=== PATIENT | female | born 1960 | race Caucasian/White ===

== ENCOUNTER 2017-09-13 09:51 | Inpatient (IN) ==
[2017-09-13 10:53] LABS: BASOPHILS % (AUTO) 0.3 % (0.2-1.0); EOSINOPHILS % (AUTO) 0.1 % (0.9-2.9); HEMATOCRIT 33.8 % (36.0-47.0); HEMOGLOBIN 11.6 g/dL (12.0-16.0); LYMPHOCYTES # (AUTO) 1.2 X10^3/uL (1.3-2.9); LYMPHOCYTES % (AUTO) 12.1 % (21.0-51.0); MEAN CORPUSCULAR HEMOGLOBIN 30.8 pg (27.0-34.0); MEAN CORPUSCULAR HGB CONC 34.5 g/dL (33.0-35.0); MEAN CORPUSCULAR VOLUME 89.4 fL (80.0-100.0); MEAN PLATELET VOLUME 8.4 fL (7.4-11.0); MONOCYTES # (AUTO) 0.6 x10^3/uL (0.3-0.8); MONOCYTES % (AUTO) 6.3 % (0.0-13.0); NEUTROPHILS # (AUTO) 7.9 x10^3/uL (2.2-4.8); NEUTROPHILS % (AUTO) 81.2 % (42.0-75.0); PLATELET COUNT 206 X10^3/uL (150.0-450.0); RED BLOOD COUNT 3.78 X10^6/uL (3.5-5.4); RED CELL DISTRIBUTION WIDTH 13.8 % (11.6-16.5); WHITE BLOOD COUNT 9.7 X10^3/uL (3.6-10.0)
[2017-09-13 11:20] LABS: ALANINE AMINOTRANSFERASE 47 Units/L (12-78); ALBUMIN 2.8 g/dL (3.4-5.0); ALKALINE PHOSPHATASE 116 Units/L (46-116); AMYLASE 31 Units/L (25-115); ASPARTATE AMINO TRANSFERASE 42 Units/L (15-37); BLOOD UREA NITROGEN 14 mg/dL (7-18); CALCIUM 9.1 mg/dL (8.5-10.1); CARBON DIOXIDE 25.4 mmol/L (21-32); CHLORIDE 102 mmol/L (98-107); COR CA(FOR HYPOALB) 10.1 mg/dL (8.5-10.1); COR NA(FOR HYPERGLY) 141 mmol/L (136-145); LIPASE 186 Units/L (73-393); SODIUM 137 mmol/L (136-145); TOTAL PROTEIN 7.5 g/dL (6.4-8.2); eGFR NON BLACK RACES > 60 (>60)
[2017-09-13] MEDS: LEVAQUIN PREMIX IV 500 MG 500 MG/100 ML BAG IV SCH (11:31)
[2017-09-13 11:56] LABS: BILIRUBIN,URINE NEGATIVE (NEGATIVE); BLOOD/HEMOGLOBIN,URINE 2+ (NEGATIVE); GLUCOSE, URINE 4+ (NEGATIVE); KETONES,URINE NEGATIVE (NEGATIVE); LEUKOCYTE ESTERASE ,URINE 1+ (NEGATIVE); NITRITES,URINE NEGATIVE (NEGATIVE); PROTEIN,URINE 2+ (NEGATIVE); UROBILINOGEN,URINE NORMAL (NORMAL)
[2017-09-13 12:13] VITALS: BMI 23.2
[2017-09-13 12:18] LABS: APPEARANCE,URINE CLEAR (CLEAR); COLOR,URINE YELLOW (YELLOW)
[2017-09-13 12:19] LABS: BACTERIA,URINE TRACE /HPF (NEGATIVE); RBC,URINE 0-2 /HPF (NONE SEEN); SQUAMOUS EPITHELIAL CELL,UR FEW /HPF (NEGATIVE)
[2017-09-13] MEDS: DEMEROL INJ IVP PRN ×2 (15:58→21:50)
[2017-09-13] MEDS: ZOFRAN INJ 4 MG VIAL IVP PRN ×2 (15:58→21:50)
[2017-09-13] MEDS: SNACK - Diabetic Appropriate PO SCH (21:13)
[2017-09-13] MEDS: NS 1000 ML 1,000 ML IV SCH (21:14)
[2017-09-14] MEDS: ZOFRAN INJ 4 MG VIAL IVP PRN (05:13)
[2017-09-14] MEDS: DEMEROL INJ IVP PRN ×2 (05:13→22:12)
[2017-09-14 06:24] LABS: BASOPHILS % (AUTO) 0.1 % (0.2-1.0); EOSINOPHILS % (AUTO) 0.5 % (0.9-2.9); HEMATOCRIT 30.3 % (36.0-47.0); HEMOGLOBIN 10.5 g/dL (12.0-16.0); LYMPHOCYTES # (AUTO) 1.2 X10^3/uL (1.3-2.9); LYMPHOCYTES % (AUTO) 15.9 % (21.0-51.0); MEAN CORPUSCULAR HEMOGLOBIN 30.7 pg (27.0-34.0); MEAN CORPUSCULAR HGB CONC 34.7 g/dL (33.0-35.0); MEAN CORPUSCULAR VOLUME 88.2 fL (80.0-100.0); MEAN PLATELET VOLUME 8.4 fL (7.4-11.0); MONOCYTES # (AUTO) 0.6 x10^3/uL (0.3-0.8); MONOCYTES % (AUTO) 8.5 % (0.0-13.0); NEUTROPHILS # (AUTO) 5.7 x10^3/uL (2.2-4.8); PLATELET COUNT 191 X10^3/uL (150.0-450.0); RED BLOOD COUNT 3.43 X10^6/uL (3.5-5.4); RED CELL DISTRIBUTION WIDTH 13.4 % (11.6-16.5); WHITE BLOOD COUNT 7.6 X10^3/uL (3.6-10.0)
[2017-09-14 06:36] LABS: ALANINE AMINOTRANSFERASE 45 Units/L (12-78); ALBUMIN 2.3 g/dL (3.4-5.0); ALKALINE PHOSPHATASE 100 Units/L (46-116); ASPARTATE AMINO TRANSFERASE 33 Units/L (15-37); BLOOD UREA NITROGEN 13 mg/dL (7-18); CALCIUM 8.8 mg/dL (8.5-10.1); CARBON DIOXIDE 23.7 mmol/L (21-32); CHLORIDE 104 mmol/L (98-107); COR CA(FOR HYPOALB) 10.2 mg/dL (8.5-10.1); COR NA(FOR HYPERGLY) 140 mmol/L (136-145); CREATININE 0.85 mg/dL (0.55-1.02); SODIUM 138 mmol/L (136-145); TOTAL PROTEIN 6.7 g/dL (6.4-8.2); eGFR NON BLACK RACES > 60 (>60)
[2017-09-14] MEDS: LEVAQUIN PREMIX IV 500 MG 500 MG/100 ML BAG IV SCH (08:52)
[2017-09-14] MEDS ORDERED: OLMESARTAN PO SCH (09:00)
[2017-09-14] MEDS ORDERED: BENICAR TAB 40 MG PO SCH (10:00)
[2017-09-14] MEDS: NS 1000 ML 1,000 ML IV SCH (11:45)
[2017-09-14] MEDS ORDERED: NS 100 ML IV 100 ML IV ONE (13:40)
[2017-09-14] MEDS: AMARYL TAB 4 MG PO SCH ×2 (14:15→21:10)
--- NOTE | 2017-09-14 16:37 | CT ---
CT OF THE ABDOMEN AND PELVIS WITH CONTRAST HISTORY: Right lower quadrant pain. History of diverticulitis. Comparison: None Technique: Multiple axial images of the abdomen and pelvis were obtained from the lung bases to the pubic symphy sis follow the administration of IV contrast as well as oral contrast. Dose reduction techniques inc luding Automated Exposure Control (AEC) and adjustment of mA and kV were utlized. Findings: The heart is normal in size. There is no pericardial effusion. Lung bases are clear without focal con solidation, pleural effusion or pneumothorax. Liver and spleen are normal in size, enhancement characteristics and contour. No focal lesions. The p ortal vein is patent. No ductal dilitation. Gallbladder is present. No calcified gallstones or gallbl adder wall thickening. The pancreas is unremarkable. Adrenal glands are normal. No hydronephrosis or nephrolithiasis. There appears to be a striated nephrogram involving the right kidney with mildly asy mmetric perinephric stranding on the right. No bowel obstruction or inflammation. Appendix not well seen however no right lower quadrant inflamma tion is identified. Diverticulosis without focal inflammation. No abnormal appearing mesenteric or re troperitoneal lymph nodes. No free fluid or fluid collections. The bladder is normal in appearance. Uterus not well seen. No free fluid or abnormal pelvic lymph nod es. No aggressive osseous lesions. IMPRESSION: 1. Right-sided striated nephrogram as well as asymmetric right perinephric fat stranding. Findings a re suggestive of pyelonephritis on the right. Correlate with symptoms and UA. Reported By:
[2017-09-14] MEDS ORDERED: HumuLIN R ONE (21:59)
[2017-09-14] MEDS: SNACK - Diabetic Appropriate PO SCH (22:10)
[2017-09-14] MEDS: BENICAR TAB 40 MG PO SCH (22:11)
[2017-09-14] MEDS: HumuLIN R SUBCUT PRN (22:11)
[2017-09-14] MEDS: ZOCOR TAB 20 MG PO SCH (22:11)
[2017-09-15 06:06] LABS: BASOPHILS % (AUTO) 0.4 % (0.2-1.0); EOSINOPHILS # (AUTO) 0.1 x10^3/uL (0.0-0.2); EOSINOPHILS % (AUTO) 1.2 % (0.9-2.9); HEMATOCRIT 32.9 % (36.0-47.0); HEMOGLOBIN 11.3 g/dL (12.0-16.0); LYMPHOCYTES # (AUTO) 1.1 X10^3/uL (1.3-2.9); LYMPHOCYTES % (AUTO) 15.3 % (21.0-51.0); MEAN CORPUSCULAR HEMOGLOBIN 30.4 pg (27.0-34.0); MEAN CORPUSCULAR HGB CONC 34.4 g/dL (33.0-35.0); MEAN CORPUSCULAR VOLUME 88.5 fL (80.0-100.0); MONOCYTES # (AUTO) 0.6 x10^3/uL (0.3-0.8); MONOCYTES % (AUTO) 8.6 % (0.0-13.0); NEUTROPHILS # (AUTO) 5.2 x10^3/uL (2.2-4.8); NEUTROPHILS % (AUTO) 74.5 % (42.0-75.0); PLATELET COUNT 239 X10^3/uL (150.0-450.0); RED BLOOD COUNT 3.72 X10^6/uL (3.5-5.4); RED CELL DISTRIBUTION WIDTH 13.3 % (11.6-16.5); WHITE BLOOD COUNT 6.9 X10^3/uL (3.6-10.0)
[2017-09-15 06:23] LABS: ALANINE AMINOTRANSFERASE 95 Units/L (12-78); ALBUMIN 2.4 g/dL (3.4-5.0); ALKALINE PHOSPHATASE 116 Units/L (46-116); ASPARTATE AMINO TRANSFERASE 88 Units/L (15-37); BLOOD UREA NITROGEN 12 mg/dL (7-18); CALCIUM 8.8 mg/dL (8.5-10.1); CARBON DIOXIDE 25.8 mmol/L (21-32); CHLORIDE 103 mmol/L (98-107); COR CA(FOR HYPOALB) 10.1 mg/dL (8.5-10.1); COR NA(FOR HYPERGLY) 142 mmol/L (136-145); SODIUM 140 mmol/L (136-145); TOTAL PROTEIN 7.1 g/dL (6.4-8.2); eGFR NON BLACK RACES > 60 (>60)
[2017-09-15] MEDS ORDERED: KLONOPIN TAB 0.5 MG PO ONE (09:19)
[2017-09-15] MEDS: AMARYL TAB 4 MG PO SCH ×2 (10:02→21:15)
[2017-09-15] MEDS: LEVAQUIN PREMIX IV 500 MG 500 MG/100 ML BAG IV SCH (10:03)
[2017-09-15] MEDS ORDERED: HumuLIN R ONE (12:05)
[2017-09-15] MEDS: HumuLIN R SUBCUT PRN ×3 (12:08→21:20)
--- NOTE | 2017-09-15 17:56 | DR.UPDATE ---
H&P Update History and Physical Update: WAS SEEN IN THE OFFICE TODAY. A H&P WAS COMPLETED PRIOR TO ADMISSION. PATIENT HAS BEEN SEEN AND EXAMINED WITH NO CHANGES NOTED TO H&P. Changes noted: NO Yes with the following:
--- NOTE | 2017-09-15 18:06 | PCM.PROG ---
Progress Note - Progress Note for Day of Date of Exam: 09/14/17 - Subjective Subjective: WAS ADMITTED FOR COMPLAINTS OF ABDOMINAL PAIN. TODAY, SHE IS ALERT AND ORIENTED, LYING IN BED ON MORNING ROUNDS. SHE CONTINUES WITH COMPLAINTS OF RLQ ABDOMINAL PAIN AND NAUSEA. SHE ALSO REPORTS LOWER BACK PAIN. RLQ TENDERNESS NOTED TO PALPATION. NORMAL BOWEL SOUNDS NOTED IN ALL QUADRANTS. HER VITALS TODAY ARE 98.8-91-18-96%-123/62. TEMPERATURE NOTED TO BE 100.3 LAST NIGHT. LABS WERE OBTAINED. ABNORMAL LAB VALUES INCLUDE THE FOLLOWING: RBC 3.43, HGB 10.5, HCT 30.3, GLUCOSE 173, ALBUMIN 2.3. URINALYSIS REVEALED WBC 3-5, RBC 0 -2, LEUKOCYTES 1+, BACTERIA TRACE. A URINE CULTURE IS PENDING. PATIENT REPORTS RECENTLY BEING TREATED FOR A URINARY TRACT INFECTION. TODAY, WE WILL OBTAIN AN ABDOMEN/PELVIS CT WITH CONTRAST. OTHERWISE, WE WILL CONTINUE WITH CURRENT PLAN OF CARE. WE PLAN TO FOLLOW UP WITH AM LABS AND CONTINUE TO MONITOR PATIENT. - Past Medical Family Social History Past Med/Fam/Surg Hx: No changes since H&P Allergies: Allergies codeine Allergy (Verified 09/13/17 10:48) - Review of Systems ROS: No change since H&P - Vital Signs and I&O's Vital Signs: Temperature 97.7 F Pulse Rate [Right Brachial] 93 Respiratory Rate 18 Blood Pressure [Right Arm] 157/70 O2 Sat by Pulse Oximetry 96 Intake and Output: Intake & Output 09/13/17 09/14/17 09/15/17 09/16/17 11:59 11:59 11:59 11:59 Intake Total 1016 / 1016 1857 / 1857 2803 / 2803 Output Total 700 / 700 Balance 316 / 316 1857 / 1857 2803 / 2803 - Physical Exam Oriented: Normal Eyes: Normal Ear: Normal Nose: Normal Throat: Normal Respiratory: Normal Cardiovascular: Normal : Normal Auscultation: Bowel Sounds: Normal Palpation: Normal Tenderness: RLQ, Moderate. negative: Rebound, Guarding, Rigidity Musculoskeletal: Back:Lumbar, Tender Psychiatric: Normal Mood Description: Calm Affect: Normal Speech Pattern: Clear, Appropriate - Laboratory and Diagnostics Result Diagrams: 09/15/17 05:36 09/15/17 05:36 Labs: 09/13/17 12:40 Blood Blood Culture - Preliminary 09/13/17 12:35 Blood Blood Culture - Preliminary 09/14/17 09:46 Urine,Clean Catch Urine Culture - Preliminary 09/13/17 11:29 Urine,Clean Catch Urine Culture - Final Laboratory WBC 6.9 X10^3/uL (3.6-10.0) 09/15/17 05:36 RBC 3.72 X10^6/uL (3.5-5.4) 09/15/17 05:36 Hgb 11.3 g/dL (12.0-16.0) L 09/15/17 05:36 Hct 32.9 % (36.0-47.0) L 09/15/17 05:36 MCV 88.5 fL (80.0-100.0) 09/15/17 05:36 MCH 30.4 pg (27.0-34.0) 09/15/17 05:36 MCHC 34.4 g/dL (33.0-35.0) 09/15/17 05:36 RDW 13.3 % (11.6-16.5) 09/15/17 05:36 Plt Count 239 X10^3/uL (150.0-450.0) 09/15/17 05:36 MPV 8.0 fL (7.4-11.0) 09/15/17 05:36 Neut % (Auto) 74.5 % (42.0-75.0) 09/15/17 05:36 Lymph % (Auto) 15.3 % (21.0-51.0) L 09/15/17 05:36 [place] % (Auto) 8.6 % (0.0-13.0) 09/15/17 05:36 Eos % (Auto) 1.2 % (0.9-2.9) 09/15/17 05:36 Baso % (Auto) 0.4 % (0.2-1.0) 09/15/17 05:36 Neut # (Auto) 5.2 x10^3/uL (2.2-4.8) H 09/15/17 05:36 Lymph # (Auto) 1.1 X10^3/uL (1.3-2.9) L 09/15/17 05:36 [place] # (Auto) 0.6 x10^3/uL (0.3-0.8) 09/15/17 05:36 Eos # (Auto) 0.1 x10^3/uL (0.0-0.2) 09/15/17 05:36 Baso # (Auto) 0.0 X10^3/uL (0.0-0.1) 09/15/17 05:36 Absolute Nucleated RBC 0.0 /100WBC 09/15/17 05:36 Sodium 140 mmol/L (136-145) 09/15/17 05:36 Corrected Sodium 142 mmol/L (136-145) 09/15/17 05:36 Potassium 3.7 mmol/L (3.5-5.1) 09/15/17 05:36 Chloride 103 mmol/L (98-107) 09/15/17 05:36 Carbon Dioxide 25.8 mmol/L (21-32) 09/15/17 05:36 BUN 12 mg/dL (7-18) 09/15/17 05:36 Creatinine 0.80 mg/dL (0.55-1.02) 09/15/17 05:36 Est GFR (MDRD) Af Amer > 60 (>60) 09/15/17 05:36 Est GFR (MDRD) Non-Af > 60 (>60) 09/15/17 05:36 Glucose 184 mg/dL (65-99) H 09/15/17 05:36 POC Glucose (mg/dL) 226 mg/dL (65-99) H 09/15/17 15:58 Calcium 8.8 mg/dL (8.5-10.1) 09/15/17 05:36 Corrected Calcium 10.1 mg/dL (8.5-10.1) 09/15/17 05:36 Total Bilirubin 0.40 mg/dL (0.2-1.0) 09/15/17 05:36 AST 88 Units/L (15-37) H 09/15/17 05:36 ALT 95 Units/L (12-78) H 09/15/17 05:36 Alkaline Phosphatase 116 Units/L (46-116) 09/15/17 05:36 Total Protein 7.1 g/dL (6.4-8.2) 09/15/17 05:36 Albumin 2.4 g/dL (3.4-5.0) L 09/15/17 05:36 Globulin 4.7 g/dL (2.5-4.5) H 09/15/17 05:36 Albumin/Globulin Ratio 0.5 Ratio (1.1-2.1) L 09/15/17 05:36 Amylase 31 Units/L (25-115) 09/13/17 10:44 Lipase 186 Units/L (73-393) 09/13/17 10:44 Specimen Type Clean catch urine 09/13/17 11:29 Urine Color Yellow (YELLOW) 09/13/17 11:29 Urine Appearance Clear (CLEAR) 09/13/17 11:29 Urine pH 7.0 (5.0 - 8.0) 09/13/17 11:29 Ur Specific [place] 1.005 (1.000-1.030) 09/13/17 11:29 Urine Protein 2+ (NEGATIVE) 09/13/17 11:29 Urine Glucose (UA) 4+ (NEGATIVE) 09/13/17 11:29 Urine Ketones Negative (NEGATIVE) 09/13/17 11:29 Urine Occult Blood 2+ (NEGATIVE) 09/13/17 11:29 Urine Nitrite Negative (NEGATIVE) 09/13/17 11:29 Urine Bilirubin Negative (NEGATIVE) 09/13/17 11:29 Urine Urobilinogen Normal (NORMAL) 09/13/17 11:29 Ur Leukocyte Esterase 1+ (NEGATIVE) 09/13/17 11:29 Urine RBC 0-2 /HPF (NONE SEEN) 09/13/17 11:29 Urine WBC 3-5 /HPF (NONE SEEN) 09/13/17 11:29 Ur Squamous Epith Cells Few /HPF (NEGATIVE) 09/13/17 11:29 Urine Bacteria Trace /HPF (NEGATIVE) 09/13/17 11:29 Ur Culture Indicated? Yes/culture set up 09/13/17 11:29 - Plan (1) Abdominal pain Status: Acute Qualifiers: Abdominal location: right lower quadrant Qualified Code(s): R10.31 - Right lower quadrant pain Plan: OBTAIN ABDOMEN/PELVIS CT WITH CONTRAST, CONTINUE LEVAQUIN, CONTINUE DEMEROL, CONTINUE TO MONITOR (2) Nausea & vomiting Status: Acute Qualifiers: Vomiting type: unspecified Vomiting Intractability: non-intractable Qualified Code(s): R11.2 - Nausea with vomiting, unspecified Plan: CONTINUE ZOFRAN PRN, CONTINUE TO MONITOR
[2017-09-15] MEDS: NS 1000 ML 1,000 ML IV SCH (20:39)
[2017-09-15] MEDS: SNACK - Diabetic Appropriate PO SCH (20:39)
[2017-09-15] MEDS: ZOCOR TAB 20 MG PO SCH (21:15)
[2017-09-15] MEDS: BENICAR TAB 40 MG PO SCH (21:15)
[2017-09-15] MEDS: KLONOPIN TAB 0.5 MG PO SCH (21:15)
[2017-09-16] MEDS ORDERED: TYLENOL 325 MG TAB PO PRN (04:14)
[2017-09-16 05:22] LABS: BASOPHILS % (AUTO) 0.4 % (0.2-1.0); EOSINOPHILS # (AUTO) 0.1 x10^3/uL (0.0-0.2); EOSINOPHILS % (AUTO) 1.6 % (0.9-2.9); HEMATOCRIT 33.2 % (36.0-47.0); HEMOGLOBIN 11.4 g/dL (12.0-16.0); LYMPHOCYTES # (AUTO) 1.5 X10^3/uL (1.3-2.9); LYMPHOCYTES % (AUTO) 19.8 % (21.0-51.0); MEAN CORPUSCULAR HEMOGLOBIN 30.2 pg (27.0-34.0); MEAN CORPUSCULAR HGB CONC 34.4 g/dL (33.0-35.0); MEAN PLATELET VOLUME 8.2 fL (7.4-11.0); MONOCYTES # (AUTO) 0.7 x10^3/uL (0.3-0.8); MONOCYTES % (AUTO) 9.3 % (0.0-13.0); NEUTROPHILS # (AUTO) 5.4 x10^3/uL (2.2-4.8); NEUTROPHILS % (AUTO) 68.9 % (42.0-75.0); PLATELET COUNT 281 X10^3/uL (150.0-450.0); RED BLOOD COUNT 3.77 X10^6/uL (3.5-5.4); RED CELL DISTRIBUTION WIDTH 13.4 % (11.6-16.5); WHITE BLOOD COUNT 7.8 X10^3/uL (3.6-10.0)
[2017-09-16 05:40] LABS: ALANINE AMINOTRANSFERASE 84 Units/L (12-78); ALBUMIN 2.4 g/dL (3.4-5.0); ALKALINE PHOSPHATASE 110 Units/L (46-116); ASPARTATE AMINO TRANSFERASE 41 Units/L (15-37); BLOOD UREA NITROGEN 15 mg/dL (7-18); CALCIUM 8.8 mg/dL (8.5-10.1); CARBON DIOXIDE 26.3 mmol/L (21-32); CHLORIDE 106 mmol/L (98-107); COR CA(FOR HYPOALB) 10.1 mg/dL (8.5-10.1); COR NA(FOR HYPERGLY) 143 mmol/L (136-145); CREATININE 0.84 mg/dL (0.55-1.02); SODIUM 141 mmol/L (136-145); eGFR NON BLACK RACES > 60 (>60)
[2017-09-16] MEDS ORDERED: BENICAR TAB 40 MG PO SCH (09:00)
[2017-09-16] MEDS: AMARYL TAB 4 MG PO SCH (09:39)
[2017-09-16] MEDS: KLONOPIN TAB 0.5 MG PO SCH (09:39)
[2017-09-16] MEDS: LEVAQUIN PREMIX IV 500 MG 500 MG/100 ML BAG IV SCH (09:40)
--- NOTE | 2017-09-16 10:11 | CT ---
HISTORY: Abdominal pain with fever and chills Study: CT abdomen and pelvis without contrast Comparison: September 14, 2017 Technique: Multiple axial images of the abdomen and pelvis were obtained from the lung bases to the pubic symphy sis without the administration of IV contrast. Dose reduction techniques including automated exposur e control (AEC) and adjustment of mA and kV were utilized. Findings: Atelectasis is noted within the visualized lungs. The liver, pancreas, adrenals, and left kidney are grossly unremarkable in appearance given the limitations of this noncontrast exam. Mild right-sided p erinephric stranding is again demonstrated similar to prior exam. Previous exam with IV contrast demo nstrated a suspected striated right nephrogram which may be seen with pyelonephritis. Recommend clini jorgito correlation and continued follow-up as indicated for further evaluation. Otherwise evaluation of the kidneys on this exam is limited without IV contrast. Correlation with ultrasound may be helpful. No CT evidence of significant hydronephrosis is identified. An approximate 1.0 cm calcific density ne ar the splenic hilum may reflect a splenic artery aneurysm and has not significantly changed. The haily endix is not definitely visualized however no significant inflammatory changes are appreciated within the right lower quadrant. Scattered diverticula are seen within the descending and sigmoid colon. A small umbilical hernia containing fat is noted. The urinary bladder is grossly unremarkable. IMPRESSION: Mild right-sided perinephric stranding similar to prior exam as discussed above. Recommend clinical c orrelation and continued follow-up is indicated further evaluation. Diverticulosis. Other findings as noted above. Reported By:
[2017-09-16] MEDS: NS 1000 ML 1,000 ML IV SCH (12:01)
[2017-09-16 13:09] VITALS: BP 170/72
--- NOTE | 2017-10-10 13:14 | DR.CARTERD ---
- Discharge Summary for: Discharge Summary for Date of:: 09/16/17 - Admission Date Date of Admission: 09/13/17 - Admission Diagnoses Admission Diagnosis: (1) Abdominal pain (2) Fever (3) Nausea & vomiting (4) UTI - Discharge Date Discharge Date: 09/16/17 - Discharge Diagnoses Discharge Diagnosis: (1) Abdominal pain (2) Fever (3) Nausea & vomiting (4) UTI - Hospital Course Hospital Course: Day one, Ms. Son presented to the hospital as a direct admission after being seen in the office with reports of abdominal pain. Patient was seen in our office the week before and was diagnosed with UTI and started on Bactrim. Patient returned to office with reports of worsening in fever and pain. Patient rated pain to abdomen as a 7/10. Patient was seen in our office one day prior as well, and was given IV fluids, and reported she felt no better this day. Patient admitted to the hospital for further evaluation and treatment. Medical History: Tinnitus, Hypertension, Gerd, Hiatal Hernia, Diverticulosis, Constipation, UTIs, Muscle Weakness, Cervical CA. Medications : Humulin R sliding scale PRN, Zofran 4mg IV Q4hr PRN, Levaquin 500mg IV daily, OTBS ACHS, NS @20ml/hr, Demerol 25mg IV Q6hr PRN. Abnormal Labs: Hgb 11.6, Hct 33.8, Glucose 263, AST 42, Albumin 2.8, Globulin 4.7, A/G Ratio 0.6. Urinalysis : Protein 2+, Glucose 4+, Occult Blood 2+, Leuk Est 1+, RBC 0-2, WBC 3-5, Bacteria Trace, Culture obtained. Blood Cultures x2 obtained. Day two, Patient was alert and oriented. She continued with complaints of RLQ abdominal pain and nausea. She also reported lower back pain. RLQ tenderness noted to palpation. Normal bowel sounds throughout. Vitals were: 98.8-91-18-96%- 123/62. Temperature noted to be 100.3 through the night. Abnormal labs were: Rbc 3.43, Hgb 10.5, Hct 30.3, Glucose 173, Albumin 2.3. We continued treatment and monitored. Day three, Patient noted with continued reports of abdominal pain with associated nausea. Pain location remained in right lower quadrant and lower back. Patient noted with tenderness on palpation of right lower quadrant. Abdomen and pelvis CT obtained revealed right-sided striated nephrogram as well as asymmetric right perinephric fat stranding; suggestive of pyelonephritis. Patient remained on IV antibiotic of Levaquin. Patient noted to have received Zofran 4mg IV x1 and Demerol 25mg IV x2 during the prior 24 hours with continued reports of pain. Abnormal Labs: Hgb 11.3, Hct 32.9, Lymph% 15.3, Neut # 5.2, Lymph# 1.1, Glucose 184, AST 88, ALT 95, Albumin 2.4, Globulin 4.7, A/G Ratio 0.5. Abdomen/Pelvis CT: Right-sided striated nephrogram as well as asymmetric right perinephric fat stranding. Findings are suggestive of pyelonephritis on the right. Correlate with symptoms and UA. We continued treatment. Day four, Patient reported that she was feeling better. She denied abdominal pain. Patient denied nausea or vomiting. Upon palpation, patient denied abdominal pain. Final blood and urine cultures negative for growth. Vital signs stable. Labs wnl. We planned for discharge. Instructions for medications and follow up were discussed with patient and family, both voiced understanding. Patient discharged home in stable condition with family. - Discharge Medications Discharge Medications: Home Medication List glimepiride 1 tab PO BID 09/13/17 [History] metformin 1 tab PO BID 09/13/17 [History] olmesartan 1 tab PO DAILY 09/13/17 [History] simvastatin 1 tab PO HS 09/13/17 [History] levofloxacin [Levaquin] 500 mg PO DAILY #14 tab 09/16/17 [Rx] ondansetron HCl [Zofran] 4 mg PO Q8H PRN #20 tab 09/16/17 [Rx] Prescriptions: levofloxacin [Levaquin] Wai Shannon ondansetron HCl [Zofran] Wai Shannon - Discharge Disposition Discharge Disposition: Patient is to follow up in our office in one week.
--- NOTE | 2017-10-21 10:36 | PCM.PROG ---
Progress Note - Progress Note for Day of Date of Exam: 09/15/17 - Subjective Subjective: WAS ADMITTED FOR COMPLAINTS OF ABDOMINAL PAIN. TODAY, SHE IS ALERT AND ORIENTED, LYING IN BED ON MORNING ROUNDS. SHE CONTINUES WITH COMPLAINTS OF RLQ ABDOMINAL PAIN AND NAUSEA. SHE ALSO CONTINUES WITH COMPLAINTS OF LOWER BACK PAIN, ALTHOUGH SLIGHTLY IMPROVED SINCE YESTERDAY. RLQ TENDERNESS NOTED TO PALPATION. NORMAL BOWEL SOUNDS NOTED IN ALL QUADRANTS. HER VITALS TODAY ARE 98.2-101-18-97%-133/63. SHE WAS AFEBRILE THROUGHOUT THE NIGHT. LABS WERE OBTAINED. ABNORMAL LAB VALUES INCLUDE THE FOLLOWING: HGB 11.3, HCT 32.9, GLUCOSE 184, AST 88, ALT 95, ALBUMIN 2.4. URINE CUTLURE AND BLOOD CULTURES ARE PENDING. AN ABDOMEN/PELVIS CT WAS OBTAINED YESTERDAY AND REVEALED: Right-sided striated nephrogram as well as asymmetric right perinephric fat stranding. Findings are suggestive of pyelonephritis on the right. TODAY, WE WILL CONTINUE WITH IV ANTIBIOTICS AND CURRENT PLAN OF CARE. WE PLAN TO FOLLOW UP WITH AM LABS AND CONTINUE TO MONITOR PATIENT. - Past Medical Family Social History Past Med/Fam/Surg Hx: No changes since H&P Allergies: Allergies codeine Allergy (Verified 09/13/17 10:48) - Review of Systems ROS: No change since H&P - Vital Signs and I&O's Vital Signs: Temperature 97.6 F Pulse Rate [Right Brachial] 76 Respiratory Rate 18 Blood Pressure [Right Arm] 170/72 O2 Sat by Pulse Oximetry 98 - Physical Exam Oriented: Normal Eyes: Normal Ear: Normal Nose: Normal Throat: Normal Respiratory: Normal Cardiovascular: Normal : Normal Auscultation: Bowel Sounds: Normal Palpation: Normal Tenderness: RLQ, Moderate. negative: Rebound, Guarding, Rigidity Musculoskeletal: Back:Lumbar, Tender Psychiatric: Normal Mood Description: Calm Affect: Normal Speech Pattern: Clear, Appropriate - Laboratory and Diagnostics Result Diagrams: 09/16/17 04:10 09/16/17 04:10 Labs: 09/13/17 12:40 Blood Blood Culture - Final 09/13/17 12:35 Blood Blood Culture - Final 09/14/17 09:46 Urine,Clean Catch Urine Culture - Final 09/13/17 11:29 Urine,Clean Catch Urine Culture - Final Laboratory WBC 7.8 X10^3/uL (3.6-10.0) 09/16/17 04:10 RBC 3.77 X10^6/uL (3.5-5.4) 09/16/17 04:10 Hgb 11.4 g/dL (12.0-16.0) L 09/16/17 04:10 Hct 33.2 % (36.0-47.0) L 09/16/17 04:10 MCV 88.0 fL (80.0-100.0) 09/16/17 04:10 MCH 30.2 pg (27.0-34.0) 09/16/17 04:10 MCHC 34.4 g/dL (33.0-35.0) 09/16/17 04:10 RDW 13.4 % (11.6-16.5) 09/16/17 04:10 Plt Count 281 X10^3/uL (150.0-450.0) 09/16/17 04:10 MPV 8.2 fL (7.4-11.0) 09/16/17 04:10 Neut % (Auto) 68.9 % (42.0-75.0) 09/16/17 04:10 Lymph % (Auto) 19.8 % (21.0-51.0) L 09/16/17 04:10 [place] % (Auto) 9.3 % (0.0-13.0) 09/16/17 04:10 Eos % (Auto) 1.6 % (0.9-2.9) 09/16/17 04:10 Baso % (Auto) 0.4 % (0.2-1.0) 09/16/17 04:10 Neut # (Auto) 5.4 x10^3/uL (2.2-4.8) H 09/16/17 04:10 Lymph # (Auto) 1.5 X10^3/uL (1.3-2.9) 09/16/17 04:10 [place] # (Auto) 0.7 x10^3/uL (0.3-0.8) 09/16/17 04:10 Eos # (Auto) 0.1 x10^3/uL (0.0-0.2) 09/16/17 04:10 Baso # (Auto) 0.0 X10^3/uL (0.0-0.1) 09/16/17 04:10 Absolute Nucleated RBC 0.1 /100WBC 09/16/17 04:10 Sodium 141 mmol/L (136-145) 09/16/17 04:10 Corrected Sodium 143 mmol/L (136-145) 09/16/17 04:10 Potassium 3.7 mmol/L (3.5-5.1) 09/16/17 04:10 Chloride 106 mmol/L (98-107) 09/16/17 04:10 Carbon Dioxide 26.3 mmol/L (21-32) 09/16/17 04:10 BUN 15 mg/dL (7-18) 09/16/17 04:10 Creatinine 0.84 mg/dL (0.55-1.02) 09/16/17 04:10 Est GFR (MDRD) Af Amer > 60 (>60) 09/16/17 04:10 Est GFR (MDRD) Non-Af > 60 (>60) 09/16/17 04:10 Glucose 192 mg/dL (65-99) H 09/16/17 04:10 POC Glucose (mg/dL) 253 mg/dL (65-99) H 09/16/17 11:50 Calcium 8.8 mg/dL (8.5-10.1) 09/16/17 04:10 Corrected Calcium 10.1 mg/dL (8.5-10.1) 09/16/17 04:10 Total Bilirubin 0.40 mg/dL (0.2-1.0) 09/16/17 04:10 AST 41 Units/L (15-37) H 09/16/17 04:10 ALT 84 Units/L (12-78) H 09/16/17 04:10 Alkaline Phosphatase 110 Units/L (46-116) 09/16/17 04:10 Total Protein 7.0 g/dL (6.4-8.2) 09/16/17 04:10 Albumin 2.4 g/dL (3.4-5.0) L 09/16/17 04:10 Globulin 4.6 g/dL (2.5-4.5) H 09/16/17 04:10 Albumin/Globulin Ratio 0.5 Ratio (1.1-2.1) L 09/16/17 04:10 Amylase 31 Units/L (25-115) 09/13/17 10:44 Lipase 186 Units/L (73-393) 09/13/17 10:44 Specimen Type Clean catch urine 09/13/17 11:29 Urine Color Yellow (YELLOW) 09/13/17 11:29 Urine Appearance Clear (CLEAR) 09/13/17 11:29 Urine pH 7.0 (5.0 - 8.0) 09/13/17 11:29 Ur Specific [place] 1.005 (1.000-1.030) 09/13/17 11:29 Urine Protein 2+ (NEGATIVE) 09/13/17 11:29 Urine Glucose (UA) 4+ (NEGATIVE) 09/13/17 11:29 Urine Ketones Negative (NEGATIVE) 09/13/17 11:29 Urine Occult Blood 2+ (NEGATIVE) 09/13/17 11:29 Urine Nitrite Negative (NEGATIVE) 09/13/17 11:29 Urine Bilirubin Negative (NEGATIVE) 09/13/17 11:29 Urine Urobilinogen Normal (NORMAL) 09/13/17 11:29 Ur Leukocyte Esterase 1+ (NEGATIVE) 09/13/17 11:29 Urine RBC 0-2 /HPF (NONE SEEN) 09/13/17 11:29 Urine WBC 3-5 /HPF (NONE SEEN) 09/13/17 11:29 Ur Squamous Epith Cells Few /HPF (NEGATIVE) 09/13/17 11:29 Urine Bacteria Trace /HPF (NEGATIVE) 09/13/17 11:29 Ur Culture Indicated? Yes/culture set up 09/13/17 11:29 - Plan (1) Abdominal pain Status: Acute Qualifiers: Abdominal location: right lower quadrant Qualified Code(s): R10.31 - Right lower quadrant pain Plan: OBTAIN ABDOMEN/PELVIS CT WITH CONTRAST, CONTINUE LEVAQUIN, CONTINUE DEMEROL, CONTINUE TO MONITOR (2) Nausea & vomiting Status: Acute Qualifiers: Vomiting type: unspecified Vomiting Intractability: non-intractable Qualified Code(s): R11.2 - Nausea with vomiting, unspecified Plan: CONTINUE ZOFRAN PRN, CONTINUE TO MONITOR
== END 2017-09-16 13:10 | disposition home or self-care (01) | DRG 392 ==
LOC: OBS
PROVIDERS: ADMIT Internal Medicine; ATTEND Internal Medicine
DX: R50.9 Fever, unspecified; N12 Tubulo-interstitial nephritis, not specified as acute or chronic; M54.5 Low back pain; R10.11 Right upper quadrant pain; R10.13 Epigastric pain; R10.31 Right lower quadrant pain
CPT/HCPCS: 36415; 74176; 74177; 80053; 81001; 82150; 83690; 85025; 87040; 87086; A4222; G0378; J1815; J1956; J2175; J2405; J3490; J7030; J7050